=== PATIENT | male | born 1970 | race African-American/Black ===

== ENCOUNTER 2016-12-16 10:17 | Inpatient (IN) | payer OTHER ==
[2016-12-16 11:21] VITALS: BMI 25.4
--- NOTE | 2016-12-16 13:50 | HP ---
CIWA Score - CIWA Score Nausea/Vomitin Muscle Tremors: 3 Anxiety: 3 Agitation: 3 Paroxysmal Sweats: 2 Orientation: 0-Oriented Tacttile Disturbances: 2-Mild Itch/Numbness/Burn Auditory Disturbances: 2-Mild Harshness/Frighten Visual Disturbances: 2-Mild Sensitivity Headache: 2-Mild CIWA-Ar Total Score: 22 Admission ROS BHS - HPI Chief Complaint: i need help to stop drinking alcohol Allergies/Adverse Reactions: Allergies Allergy/AdvReac Type Severity Reaction Status Date / Time No Known Allergies Allergy Verified 12/16/16 12:39 History of Present Illness: this 46 years old male with alcohol dependence,seeking help to stop drinking, last detox 2016 [facility] 11/06/15 to 11/10/15 syncope htn depression longest period of sobriety 8 years Exam Limitations: No Limitations - Ebola screening Have you traveled outside of the country in the last 21 days: No Have you had contact with anyone from an Ebola affected area: No Have you been sick,other than usual withdrawal symptoms: No - Review of Systems Constitutional: No Symptoms Reported EENT: reports: Nose Congestion Respiratory: reports: No Symptoms reported Cardiac: reports: Palpitations GI: reports: Diarrhea, Nausea, Vomiting, Abdominal cramping : reports: No Symptoms Reported Musculoskeletal: reports: Back Pain, Muscle Pain Integumentary: reports: Dryness Endocrine: reports: No Symptoms Reported Hematology: reports: No Symptoms Reported Psychiatric: reports: No Sypmtoms Reported, Judgement Intact, Mood/Affect Appropiate, Depressed Patient History - Patient Medical History Hx Anemia: Yes (not taking any iron supplement) Hx Asthma: No Hx Chronic Obstructive Pulmonary Disease (COPD): No Hx Cancer: No Hx Cardiac Disorders: No Hx Congestive Heart Failure: No Hx Hypertension: Yes (ON MEDS.) Hx Hypercholesterolemia: Yes (NO MED) Hx Pacemaker: No HX Cerebrovascular Accident: No Hx Seizures: No Hx Dementia: No Hx Diabetes: No Hx Gastrointestinal Disorders: No Hx Liver Disease: No Hx Genitourinary Disorders: No Hx Sexually Transmitted Disorders: No Hx Renal Disease (ESRD): No Hx Thyroid Disease: No Hx Human Immunodeficiency Virus (HIV): No (NEGATIVE HX last 2016) Hx Hepatitis C: No (HEP B 27 YRS. AGO) Hx Depression: Yes Hx Suicide Attempt: No Hx Bipolar Disorder: No Hx Schizophrenia: No Other Medical History: no suicidal,no homicidal,history of rectal cancer biopsy 2 weeks ago, - Patient Surgical History Past Surgical History: Yes Hx Neurologic Surgery: No Hx Cataract Extraction: No Hx Cardiac Surgery: No Hx Lung Surgery: No Hx Breast Surgery: No Hx Breast Biopsy: No Hx Abdominal Surgery: No Hx Appendectomy: No Hx Cholecystectomy: No Hx Genitourinary Surgery: No Hx Section: No Hx Orthopedic Surgery: Yes (R shoulder sx in 2010) Other Surgical History: R wrist sx in 2011 R foot sx at age 10 yrs.,colonoscopy 2 weeks was told ca Anesthesia Reaction: No - PPD History Previous Implant?: Yes Documented Results: Negative w/o proof Implanted On Prior [facility] Admission?: Yes Date: 11/08/15 Results: 0 MM PPD to be Administered?: Yes - Smoking Cessation Smoking history: Never smoked Have you smoked in the past 12 months: No Hx Chewing Tobacco Use: No - Substance & Tx. History Hx Alcohol Use: Yes Hx Substance Use: Yes Substance Use Type: Alcohol Hx Substance Use Treatment: Yes ([facility] 11/06/15 to 11/10/15) - Substances Abused Alcohol Route: Oral Frequency: Daily Amount used: 12PK BEER Age of first use: 9 Date of Last Use: 12/16/16 Family Disease History - Family Disease History Family Disease History: Heart Disease: Mother (HTN), Other: Father (alcohol, ) Admission Physical Exam S - Vital Signs Vital Signs: Vital Signs - 24 hr 12/16/16 11:18 Temperature 97.0 F L Pulse Rate 108 H Respiratory 20 Rate Blood Pressure 140/91 - Physical General Appearance: Yes: Moderate Distress, Tremorous, Irritable, Sweating, Anxious HEENTM: Yes: Hearing grossly Normal, Normal ENT Inspection, [place], Pharynx Normal Respiratory: Yes: Lungs Clear, Normal Breath Sounds, No Respiratory Distress Neck: Yes: Within Normal Limits, Supple, Trachea in good position Breast: Yes: Within Normal Limits Cardiology: Yes: Tachycardia Abdominal: Yes: Within Normal Limits, Normal Bowel Sounds, Flat, Soft, Increased Bowel Sounds Genitourinary: Yes: Within Normal Limits Back: Yes: Normal Inspection, Muscle Spasm Musculoskeletal: Yes: full range of Motion, Back pain, Muscle Pain Extremities: Yes: Normal Range of Motion, Tremors, Coldness Neurological: Yes: checking clerk II-XII NML intact, Alert, Motor Strength 5/5 Integumentary: Yes: Dry Lymphatic: Yes: Within Normal Limits - Diagnostic (1) Alcohol dependence with uncomplicated withdrawal Current Visit: No Status: Acute (2) MDD (major depressive disorder) Current Visit: No Status: Acute (3) HTN (hypertension) Current Visit: No Status: Chronic Qualifiers: Hypertension type: essential hypertension Qualified Code(s): I10 - Essential (primary) hypertension (4) Hyperlipemia Current Visit: No Status: Suspected (5) Depression Current Visit: Yes Status: Acute (6) Cancer of rectum Current Visit: Yes Status: Acute Cleared for Admission [facility] - Detox or Rehab [facility] Level of Care: Medically Managed Detox Regimen/Protocol: Librium (patient stated has colonoscopy done 2 weeks ago ,had biopsy was told to be canccer of rectum,had cat scan shich showed spot in liver,has appontment to see his pmd on 12/21/16) [facility] Breath Alcohol Content Breath Alcohol Content: 0.350 Urine Drug Screen - Results Drug Screen Negative: Yes
[2016-12-16] MEDS ORDERED: MAGNESIUM CITRATE 300 ML BOTTLE PO PRN (14:15)
[2016-12-16] MEDS ORDERED: hydrOXYzine PAMOATE 50 MG CAPSULE (FP) PO PRN (14:15)
[2016-12-16] MEDS ORDERED: ACETAMINOPHEN 325 MG TABLET (FP) PO PRN (14:15)
[2016-12-16] MEDS ORDERED: LOPERAMIDE HCL 2 MG CAPSULE PO PRN (14:15)
[2016-12-16] MEDS ORDERED: IBUPROFEN 400 MG TABLET (FP) PO PRN (14:15)
[2016-12-16] MEDS ORDERED: diphenhydrAMINE HCL 50 MG CAPSULE PO PRN (14:15)
[2016-12-16] MEDS ORDERED: MAGNESIUM HYDROX 2400MG/30ML ORAL SUSPENSION 30 ML CUP PO PRN (14:15)
[2016-12-16] MEDS ORDERED: chlordiazePOXIDE HCL 25 MG CAPSULE PO PRN (14:15)
[2016-12-16] MEDS ORDERED: guaiFENesin/D-METHORPHAN HB 10 ML UNIT-DOSE CUPS PO PRN (14:15)
[2016-12-16] MEDS ORDERED: P-EPHED 60MG/TRIPROLIDI 2.5MG TABLET PO PRN (14:15)
[2016-12-16] MEDS ORDERED: MENTHOL/PHENOL 1 EACH UD MM PRN (14:15)
[2016-12-16] MEDS ORDERED: chlordiazePOXIDE HCL 25 MG CAPSULE PO ONE (14:22)
[2016-12-16] MEDS: amLODIPine BESYLATE 5 MG TABLET (FP) PO SCH (15:48)
[2016-12-16] MEDS: chlordiazePOXIDE HCL 25 MG CAPSULE PO SCH ×2 (16:57→22:13)
[2016-12-16 17:15] LABS: URINE APPEARANCE CLEAR; URINE BILIRUBIN NEGATIVE (NEGATIVE); URINE COLOR STRAW; URINE GLUCOSE (UA) NEGATIVE (NEGATIVE); URINE KETONE NEGATIVE (NEGATIVE); URINE LEUK ESTERASE NEGATIVE (NEGATIVE); URINE NITRITE NEGATIVE (NEGATIVE); URINE PROTEIN NEGATIVE (NEGATIVE); URINE UROBILINOGEN NEGATIVE E.U./dl (0.2-1.0)
[2016-12-16 17:19] LABS: URINE BLOOD 1+ (NEGATIVE)
[2016-12-16 17:25] LABS: URINE RBC 1 /hpf (0-3); URINE WBC <1 /hpf (3-5)
[2016-12-16] MEDS: THIAMINE HCL 100 MG TABLET (FP) PO SCH (22:13)
[2016-12-17] MEDS: chlordiazePOXIDE HCL 25 MG CAPSULE PO SCH ×4 (05:33→22:09)
[2016-12-17 10:06] LABS: MCH 29.5 pg (25.7-33.7); MEAN CELL VOLUME 89.4 fl (80-96); MEAN PLT VOLUME 8.4 fl (7.5-11.1); PLATELET COUNT 256 K/MM3 (134-434); RDW 14.7 % (11.9-15.9); WHITE BLOOD COUNT 5.2 K/mm3 (4.0-10.0)
[2016-12-17] MEDS: PRENATAL VITAMINS W/ FOLIC ACID TABLET (FP) PO SCH (10:08)
[2016-12-17] MEDS: amLODIPine BESYLATE 5 MG TABLET (FP) PO SCH (10:09)
[2016-12-17] MEDS: ASPIRIN COATED 81 MG TABLET.EC PO SCH (10:09)
--- NOTE | 2016-12-17 10:25 | PN ---
[facility] CIWA - CIWA Score Nausea/Vomitin-Int. Nausea w/Dry Heave Muscle Tremors: 4-Moderate,w/Arms Extend Anxiety: 5 Agitation: 4-Moderately Restless Paroxysmal Sweats: 1-Minimal Palms Moist Orientation: 0-Oriented Tacttile Disturbances: 3-Moderate Itch/Numb/Burn Auditory Disturbances: 0-None Visual Disturbances: 0-None Headache: 0-None Present CIWA-Ar Total Score: 21 BHS Progress Note (SOAP) Subjective: ANXIETY, TREMORS,SWEATS,NAUSEA,INTERMITTENT SLEEP. Objective: 12/17/16 10:27 Vital Signs Temperature 97.4 F L 12/17/16 09:45 Pulse Rate 120 H 12/17/16 09:45 Respiratory Rate 18 12/17/16 09:45 Blood Pressure 135/99 12/17/16 09:45 O2 Sat by Pulse Oximetry (%) Laboratory Last Values WBC 5.2 K/mm3 (4.0-10.0) 12/17/16 06:00 RBC 4.90 M/mm3 (4.00-5.60) 12/17/16 06:00 Hgb 14.4 GM/dL (11.7-16.9) 12/17/16 06:00 Hct 43.8 % (35.4-49) 12/17/16 06:00 MCV 89.4 fl (80-96) 12/17/16 06:00 MCHC 33.0 g/dl (32.0-35.9) 12/17/16 06:00 RDW 14.7 % (11.9-15.9) 12/17/16 06:00 Plt Count 256 K/MM3 (134-434) 12/17/16 06:00 MPV 8.4 fl (7.5-11.1) 12/17/16 06:00 Urine Color Straw 12/16/16 15:00 Urine Appearance Clear 12/16/16 15:00 Urine pH 5.0 (5.0-8.0) 12/16/16 15:00 Ur Specific [place] 1.010 (1.005-1.025) 12/16/16 15:00 Urine Protein Negative (NEGATIVE) 12/16/16 15:00 Urine Glucose (UA) Negative (NEGATIVE) 12/16/16 15:00 Urine Ketones Negative (NEGATIVE) 12/16/16 15:00 Urine Blood 1+ (NEGATIVE) H 12/16/16 15:00 Urine Nitrite Negative (NEGATIVE) 12/16/16 15:00 Urine Bilirubin Negative (NEGATIVE) 12/16/16 15:00 Urine Urobilinogen Negative E.U./dl (0.2-1.0) 12/16/16 15:00 Ur Leukocyte Esterase Negative (NEGATIVE) 12/16/16 15:00 Urine RBC 1 /hpf (0-3) 12/16/16 15:00 Urine WBC <1 /hpf (3-5) 12/16/16 15:00 Assessment: 12/17/16 10:27 WITHDRAWAL SX Plan: CONTINUE DETOX [facility] SL PRN DIRECTED.
[2016-12-17 10:36] LABS: ALBUMIN 4.5 g/dl (3.4-5.0); ANION GAP 12 (8-16); CO2 25 mmol/L (21-32); GLUCOSE,RANDOM 113 mg/dL (74-106); SGOT/AST 148 U/L (15-37); SGPT/ALT 78 U/L (12-78)
[2016-12-17] MEDS ORDERED: ONDANSETRON *ODT* 4 MG TABLET SL PRN (10:41)
[2016-12-17 10:44] LABS: ALK PHOS 74 U/L (45-117); BILIRUBIN,TOTAL 1.1 mg/dL (0.2-1.0); COCKROFT - GAULT 88.86; CREATININE 1.2 mg/dL (0.7-1.3); TOT PROT 8.3 g/dl (6.4-8.2)
--- NOTE | 2016-12-17 10:59 | CONSULT ---
[facility] Psychiatric Consult - Data Date of interview: 12/17/16 Admission source: [facility] Identifying data: Readmission to [facility] for this 46 y/o AA male seeking detox treatment for alcohol dependence.Patient is single,a father of three, domiciled,unemployed and supported on food stamps. Substance Abuse History: - Smoking Cessation. Smoking history: Never smoked. Have you smoked in the past 12 months: No. Hx Chewing Tobacco Use: No. - Substance & Tx. History. Hx Alcohol Use: Yes. Hx Substance Use: Yes. Substance Use Type: Alcohol. Hx Substance Use Treatment: Yes ([facility] 11/06/15 to 11/10/15). - Substances Abused. Alcohol. Route: Oral. Frequency: Daily. Amount used: 12PK BEER. Age of first use: 9. Date of Last Use: 12/16/16. Confirmed by patient. Medical History: Anemia,hypertension,dyslipidemia,and recently discovered rectal cancer (via colonoscopy two weeks ago).Noted past history of hepatitis B (years ago) and orthopedic surgeries (right shoulder / right wrist in 2010 and right foot at age [age]). Psychiatric History: No reported history of psychiatric hospitalizations.Diagnosed with MDD and followed at the [facility] OPD clinic in [facility].On Zoloft 50 mg/day.Mr Bal denies history of suicide attempts.Noted report of Mental Retardation. Physical/Sexual Abuse/Trauma History: Patient denies. Additional Comment: Drug Screen is negative. Mental Status Exam - Mental Status Exam Alert and Oriented to: Time, Place, Person Cognitive Function: Good Patient Appearance: Well Groomed Mood: Nervous, Withdrawn Affect: Mood Congruent Patient Behavior: Fatigued, Appropriate, Cooperative Speech Pattern: Clear Voice Loudness: Normal Thought Process: Goal Oriented Thought Disorder: Not Present Hallucinations: Denies Suicidal Ideation: Denies Homicidal Ideation: Denies Insight/Judgement: Poor Sleep: Poorly, Difficulty falling asleep Appetite: Good Muscle strength/Tone: Normal Gait/Station: Normal Psychiatric Findings - Problem List ([place] 1, 2,3) (1) Alcohol dependence with uncomplicated withdrawal Current Visit: Yes Status: Acute (2) MDD (major depressive disorder) Current Visit: Yes Status: Chronic Comment: Self-report. (3) Cancer of rectum Current Visit: Yes Status: Chronic (4) History of anemia Current Visit: Yes Status: Suspected (5) Hyperlipemia Current Visit: Yes Status: Chronic (6) Insomnia Current Visit: Yes Status: Acute - Initial Treatment Plan Initial Treatment Plan: Psychoeducation.Detoxification is initiated.Medications : ambien 10 mg po hs + zoloft 50 mg po hs.Side effects/benefits discussed with patient.He agrees with this careplan.Observation.
[2016-12-17] MEDS: METOPROLOL TARTRATE 25 MG TABLET (FP) PO SCH (11:01)
[2016-12-17 12:34] LABS: HIV 1 & 2 AB NEGATIVE; HIV 1 AGp24 NEGATIVE
--- NOTE | 2016-12-17 12:49 | EKG ---
Test Reason : Blood Pressure : / mmHG Vent. Rate : 073 BPM Atrial Rate : 073 BPM P-R Int : 138 ms QRS Dur : 094 ms QT Int : 390 ms P-R-T Axes : 077 051 010 degrees QTc Int : 429 ms NORMAL SINUS RHYTHM WITH SINUS ARRHYTHMIA NORMAL ECG NO PREVIOUS ECGS AVAILABLE Confirmed by AISSATOU GODOY MD ([id number]) on 12/17/2016 12:48:33 PM Referred By: Confirmed By:AISSATOU GODOY MD
[2016-12-17] MEDS ORDERED: chlordiazePOXIDE HCL 25 MG CAPSULE PO ONE (14:00)
[2016-12-17] MEDS: THIAMINE HCL 100 MG TABLET (FP) PO SCH (22:09)
[2016-12-17] MEDS: ZOLPIDEM TARTRATE 10 MG TABLET (PARK CARE ONLY) PO PRN (22:09)
[2016-12-18] MEDS: chlordiazePOXIDE HCL 25 MG CAPSULE PO SCH ×2 (06:03→10:18)
[2016-12-18] MEDS: METOPROLOL TARTRATE 25 MG TABLET (FP) PO SCH (10:18)
[2016-12-18] MEDS: amLODIPine BESYLATE 5 MG TABLET (FP) PO SCH (10:18)
[2016-12-18] MEDS: SERTRALINE HCL 50 MG TABLET (FP) PO SCH (10:18)
[2016-12-18] MEDS: PRENATAL VITAMINS W/ FOLIC ACID TABLET (FP) PO SCH (10:18)
[2016-12-18] MEDS: ASPIRIN COATED 81 MG TABLET.EC PO SCH (10:18)
[2016-12-18] MEDS: MAG HYDROX/AL HYDROX/SIMETH 30 ML UNIT-DOSE CUP PO PRN ×2 (11:02→20:52)
--- NOTE | 2016-12-18 11:56 | PN ---
[facility] CIWA - CIWA Score Nausea/Vomitin-No Nausea/No Vomiting Muscle Tremors: 4-Moderate,w/Arms Extend Anxiety: 4-Mod. Anxious/Guarded Agitation: 4-Moderately Restless Paroxysmal Sweats: 1-Minimal Palms Moist Orientation: 0-Oriented Tacttile Disturbances: 3-Moderate Itch/Numb/Burn Auditory Disturbances: 0-None Visual Disturbances: 0-None Headache: 0-None Present CIWA-Ar Total Score: 16 S Progress Note (SOAP) Subjective: IRRITABILITY,SWEATS,TREMORS,INTERMITTENT SLEEP. Objective: 12/18/16 11:56 Vital Signs Temperature 98.5 F 12/18/16 09:09 Pulse Rate 109 H 12/18/16 09:09 Respiratory Rate 20 12/18/16 09:09 Blood Pressure 142/97 12/18/16 09:10 O2 Sat by Pulse Oximetry (%) Laboratory Last Values WBC 5.2 K/mm3 (4.0-10.0) 12/17/16 06:00 RBC 4.90 M/mm3 (4.00-5.60) 12/17/16 06:00 Hgb 14.4 GM/dL (11.7-16.9) 12/17/16 06:00 Hct 43.8 % (35.4-49) 12/17/16 06:00 MCV 89.4 fl (80-96) 12/17/16 06:00 MCHC 33.0 g/dl (32.0-35.9) 12/17/16 06:00 RDW 14.7 % (11.9-15.9) 12/17/16 06:00 Plt Count 256 K/MM3 (134-434) 12/17/16 06:00 MPV 8.4 fl (7.5-11.1) 12/17/16 06:00 Sodium 135 mmol/L (136-145) L 12/17/16 06:00 Potassium 4.4 mmol/L (3.5-5.1) 12/17/16 06:00 Chloride 98 mmol/L (98-107) 12/17/16 06:00 Carbon Dioxide 25 mmol/L (21-32) 12/17/16 06:00 Anion Gap 12 (8-16) 12/17/16 06:00 BUN 4 mg/dL (7-18) L D 12/17/16 06:00 Creatinine 1.2 mg/dL (0.7-1.3) 12/17/16 06:00 Creat Clearance w eGFR > 60 (>60) 12/17/16 06:00 Random Glucose 113 mg/dL (74-106) H 12/17/16 06:00 Calcium 9.0 mg/dL (8.5-10.1) 12/17/16 06:00 Total Bilirubin 1.1 mg/dL (0.2-1.0) H D 12/17/16 06:00 AST 148 U/L (15-37) H D 12/17/16 06:00 ALT 78 U/L (12-78) D 12/17/16 06:00 Alkaline Phosphatase 74 U/L (45-117) 12/17/16 06:00 Total Protein 8.3 g/dl (6.4-8.2) H 12/17/16 06:00 Albumin 4.5 g/dl (3.4-5.0) 12/17/16 06:00 Urine Color Straw 12/16/16 15:00 Urine Appearance Clear 12/16/16 15:00 Urine pH 5.0 (5.0-8.0) 12/16/16 15:00 Ur Specific [place] 1.010 (1.005-1.025) 12/16/16 15:00 Urine Protein Negative (NEGATIVE) 12/16/16 15:00 Urine Glucose (UA) Negative (NEGATIVE) 12/16/16 15:00 Urine Ketones Negative (NEGATIVE) 12/16/16 15:00 Urine Blood 1+ (NEGATIVE) H 12/16/16 15:00 Urine Nitrite Negative (NEGATIVE) 12/16/16 15:00 Urine Bilirubin Negative (NEGATIVE) 12/16/16 15:00 Urine Urobilinogen Negative E.U./dl (0.2-1.0) 12/16/16 15:00 Ur Leukocyte Esterase Negative (NEGATIVE) 12/16/16 15:00 Urine RBC 1 /hpf (0-3) 12/16/16 15:00 Urine WBC <1 /hpf (3-5) 12/16/16 15:00 RPR Titer Nonreactive (NONREACTIVE) 12/17/16 06:00 HIV 1&2 Antibody Screen Negative 12/16/16 14:15 HIV P24 Antigen Negative 12/16/16 14:15 Assessment: 12/18/16 11:56 WITHDRAWAL SX Plan: CONTINUE DETOX
[2016-12-18] MEDS: ARTIFICIAL TEARS (POLYVINYL ALCOHOL 1.4%) OPTH DROPS OU SCH ×2 (13:41→22:50)
[2016-12-18] MEDS: chlordiazePOXIDE 5 MG CAPSULE PO SCH ×2 (17:19→22:11)
[2016-12-18] MEDS: THIAMINE HCL 100 MG TABLET (FP) PO SCH (22:11)
[2016-12-18] MEDS: ZOLPIDEM TARTRATE 10 MG TABLET (PARK CARE ONLY) PO PRN (22:13)
[2016-12-19] MEDS: ARTIFICIAL TEARS (POLYVINYL ALCOHOL 1.4%) OPTH DROPS OU SCH ×3 (05:44→22:09)
[2016-12-19] MEDS: chlordiazePOXIDE 5 MG CAPSULE PO SCH ×2 (05:44→10:10)
[2016-12-19] MEDS: SERTRALINE HCL 50 MG TABLET (FP) PO SCH (10:10)
[2016-12-19] MEDS: PRENATAL VITAMINS W/ FOLIC ACID TABLET (FP) PO SCH (10:10)
[2016-12-19] MEDS: ASPIRIN COATED 81 MG TABLET.EC PO SCH (10:10)
[2016-12-19] MEDS: METOPROLOL TARTRATE 25 MG TABLET (FP) PO SCH (10:10)
[2016-12-19] MEDS: amLODIPine BESYLATE 5 MG TABLET (FP) PO SCH (10:10)
--- NOTE | 2016-12-19 10:36 | PN ---
S Progress Note (SOAP) Subjective: ANXIETY,SWEATS,FATIGUE. RESPONDING WELL. Objective: 12/19/16 10:35 Vital Signs Temperature 99.6 F 12/19/16 09:52 Pulse Rate 78 12/19/16 09:52 Respiratory Rate 20 12/19/16 09:52 Blood Pressure 136/89 12/19/16 09:52 O2 Sat by Pulse Oximetry (%) Laboratory Last Values WBC 5.2 K/mm3 (4.0-10.0) 12/17/16 06:00 RBC 4.90 M/mm3 (4.00-5.60) 12/17/16 06:00 Hgb 14.4 GM/dL (11.7-16.9) 12/17/16 06:00 Hct 43.8 % (35.4-49) 12/17/16 06:00 MCV 89.4 fl (80-96) 12/17/16 06:00 MCHC 33.0 g/dl (32.0-35.9) 12/17/16 06:00 RDW 14.7 % (11.9-15.9) 12/17/16 06:00 Plt Count 256 K/MM3 (134-434) 12/17/16 06:00 MPV 8.4 fl (7.5-11.1) 12/17/16 06:00 Sodium 135 mmol/L (136-145) L 12/17/16 06:00 Potassium 4.4 mmol/L (3.5-5.1) 12/17/16 06:00 Chloride 98 mmol/L (98-107) 12/17/16 06:00 Carbon Dioxide 25 mmol/L (21-32) 12/17/16 06:00 Anion Gap 12 (8-16) 12/17/16 06:00 BUN 4 mg/dL (7-18) L D 12/17/16 06:00 Creatinine 1.2 mg/dL (0.7-1.3) 12/17/16 06:00 Creat Clearance w eGFR > 60 (>60) 12/17/16 06:00 Random Glucose 113 mg/dL (74-106) H 12/17/16 06:00 Calcium 9.0 mg/dL (8.5-10.1) 12/17/16 06:00 Total Bilirubin 1.1 mg/dL (0.2-1.0) H D 12/17/16 06:00 AST 148 U/L (15-37) H D 12/17/16 06:00 ALT 78 U/L (12-78) D 12/17/16 06:00 Alkaline Phosphatase 74 U/L (45-117) 12/17/16 06:00 Total Protein 8.3 g/dl (6.4-8.2) H 12/17/16 06:00 Albumin 4.5 g/dl (3.4-5.0) 12/17/16 06:00 Urine Color Straw 12/16/16 15:00 Urine Appearance Clear 12/16/16 15:00 Urine pH 5.0 (5.0-8.0) 12/16/16 15:00 Ur Specific [place] 1.010 (1.005-1.025) 12/16/16 15:00 Urine Protein Negative (NEGATIVE) 12/16/16 15:00 Urine Glucose (UA) Negative (NEGATIVE) 12/16/16 15:00 Urine Ketones Negative (NEGATIVE) 12/16/16 15:00 Urine Blood 1+ (NEGATIVE) H 12/16/16 15:00 Urine Nitrite Negative (NEGATIVE) 12/16/16 15:00 Urine Bilirubin Negative (NEGATIVE) 12/16/16 15:00 Urine Urobilinogen Negative E.U./dl (0.2-1.0) 12/16/16 15:00 Ur Leukocyte Esterase Negative (NEGATIVE) 12/16/16 15:00 Urine RBC 1 /hpf (0-3) 12/16/16 15:00 Urine WBC <1 /hpf (3-5) 12/16/16 15:00 RPR Titer Nonreactive (NONREACTIVE) 12/17/16 06:00 HIV 1&2 Antibody Screen Negative 12/16/16 14:15 HIV P24 Antigen Negative 12/16/16 14:15 Assessment: 12/19/16 10:36 WITHDRAWAL SX Plan: CONTINUE DETOX
[2016-12-19] MEDS: chlordiazePOXIDE HCL 10 MG CAPSULE PO SCH ×2 (17:12→22:10)
[2016-12-19] MEDS: THIAMINE HCL 100 MG TABLET (FP) PO SCH (22:10)
[2016-12-19] MEDS: ZOLPIDEM TARTRATE 10 MG TABLET (PARK CARE ONLY) PO PRN (22:10)
[2016-12-20] MEDS: ARTIFICIAL TEARS (POLYVINYL ALCOHOL 1.4%) OPTH DROPS OU SCH (05:37)
[2016-12-20] MEDS: chlordiazePOXIDE HCL 10 MG CAPSULE PO SCH (05:38)
[2016-12-20 06:34] VITALS: BP 137/95; PULSE 64; TEMP 97.3
--- NOTE | 2016-12-20 15:12 | DS ---
[facility] Detox Discharge Summary Admission Date: 12/16/16 Discharge Date: 12/20/16 - History Present History: Alcohol Dependence Additional Comments: ADVISED PATIENT TO FOLLOW-UP WITH [facility] AFTER DISCHARGE FROM DETOX FOR GENERAL MEDICAL ASSESSMENT. Pertinent Past History: Hypercholesterolemia, HTN, Hep B, Cancer Of rectum, Anemia, Depression. - Physical Exam Results Vital Signs: Vital Signs Temperature 97.3 F L 12/20/16 06:33 Pulse Rate 64 12/20/16 06:33 Respiratory Rate 18 12/20/16 06:33 Blood Pressure 137/95 12/20/16 06:33 O2 Sat by Pulse Oximetry (%) Pertinent Admission Physical Exam Findings: WITHDRAWAL SYMPTOMS. Laboratory Tests 12/16/16 12/16/16 12/17/16 14:15 15:00 06:00 WBC 5.2 RBC 4.90 Hgb 14.4 Hct 43.8 MCV 89.4 MCHC 33.0 RDW 14.7 Plt Count 256 MPV 8.4 Sodium Potassium Chloride Carbon Dioxide Anion Gap BUN Creatinine Creat Clearance w eGFR Random Glucose Calcium Total Bilirubin AST ALT Alkaline Phosphatase Total Protein Albumin Urine Color Straw Urine Appearance Clear Urine pH 5.0 Ur Specific [place] 1.010 Urine Protein Negative Urine Glucose (UA) Negative Urine Ketones Negative Urine Blood 1+ H Urine Nitrite Negative Urine Bilirubin Negative Urine Urobilinogen Negative Ur Leukocyte Esterase Negative Urine RBC 1 Urine WBC <1 RPR Titer HIV 1&2 Antibody Screen Negative HIV P24 Antigen Negative 12/17/16 12/17/16 06:00 06:00 WBC RBC Hgb Hct MCV MCHC RDW Plt Count MPV Sodium 135 L Potassium 4.4 Chloride 98 Carbon Dioxide 25 Anion Gap 12 BUN 4 L D Creatinine 1.2 Creat Clearance w eGFR > 60 Random Glucose 113 H Calcium 9.0 Total Bilirubin 1.1 H D AST 148 H D ALT 78 D Alkaline Phosphatase 74 Total Protein 8.3 H Albumin 4.5 Urine Color Urine Appearance Urine pH Ur Specific [place] Urine Protein Urine Glucose (UA) Urine Ketones Urine Blood Urine Nitrite Urine Bilirubin Urine Urobilinogen Ur Leukocyte Esterase Urine RBC Urine WBC RPR Titer Nonreactive HIV 1&2 Antibody Screen HIV P24 Antigen LABS NOTED. - Treatment Hospital Course: Detox Protocol Followed, Detoxed Safely, Responded well, Discharged Condition Good Patient has Accepted a Rehab Referral to: NO-PT. TO RETURN TO [facility]PATIENT PROGRAM. - Medication Discharge Medications: Ambulatory Orders Sertraline HCl [Zoloft -] 50 mg PO DAILY #30 tablet 12/19/16 Amlodipine Besylate 5 mg PO DAILY #30 mg 12/20/16 Aspirin [Aspirin EC] 81 mg PO DAILY #30 mg 12/20/16 - Diagnosis (1) Alcohol dependence with uncomplicated withdrawal Status: Acute (2) Insomnia Status: Acute Qualifiers: Insomnia type: unspecified Qualified Code(s): G47.00 - Insomnia, unspecified (3) Cancer of rectum Status: Chronic (4) HTN (hypertension) Status: Chronic Qualifiers: Hypertension type: essential hypertension Qualified Code(s): I10 - Essential (primary) hypertension (5) Hyperlipemia Status: Chronic Qualifiers: Hyperlipidemia type: unspecified Qualified Code(s): E78.5 - Hyperlipidemia, unspecified (6) MDD (major depressive disorder) Status: Chronic Qualifiers: Major depression recurrence: recurrent Active/Remission status: remission status unspecified Qualified Code(s): F33.9 - Major depressive disorder, recurrent, unspecified (7) History of anemia Status: Suspected - AMA Did Patient Leave Against Medical Advice: No
== END 2016-12-20 08:50 | disposition home or self-care (01) | DRG 775 ==
LOC: YASAS 10:17 → Y3N 13:24
PROVIDERS: ADMIT Internal Medicine; ATTEND Internal Medicine
PROC: HZ2ZZZZ Detoxification Services for Substance Abuse Treatment (ICD-10-PCS; principal; 2016-12-16)
DX: F10.230 Alcohol dependence with withdrawal, uncomplicated (principal); F33.9 Major depressive disorder, recurrent, unspecified; R00.0 Tachycardia, unspecified; I10 Essential (primary) hypertension; E78.5 Hyperlipidemia, unspecified; C20 Malignant neoplasm of rectum; G47.00 Insomnia, unspecified; Z86.2 Personal history of diseases of the blood and blood-forming organs and certain disorders involving the immune mechanism; Z86.19 Personal history of other infectious and parasitic diseases
CPT/HCPCS: 36415; 80053; 81003; 81015; 85027; 86593; 87389; 93005; 93010

== ENCOUNTER 2017-03-10 08:20 | Inpatient (IN) | payer OTHER ==
[2017-03-10 08:57] VITALS: BMI 24.0
--- NOTE | 2017-03-10 13:08 | HP ---
CIWA Score - CIWA Score Nausea/Vomitin Muscle Tremors: 3 Anxiety: 5 Agitation: 4-Moderately Restless Paroxysmal Sweats: 1-Minimal Palms Moist Orientation: 0-Oriented Tacttile Disturbances: 3-Moderate Itch/Numb/Burn Auditory Disturbances: 0-None Visual Disturbances: 0-None Headache: 2-Mild CIWA-Ar Total Score: 23 Admission ROS BHS - HPI Chief Complaint: DETOX TX FOR ALCOHOL DEPENDENCE Allergies/Adverse Reactions: Allergies Allergy/AdvReac Type Severity Reaction Status Date / Time No Known Allergies Allergy Verified 03/10/17 10:17 History of Present Illness: 46 Y/O AA/MALE WITH A HX OF ALCOHOL AND MARIJUANA DEPENDENCE SEEKING DETOX TX Exam Limitations: No Limitations - Ebola screening Have you traveled outside of the country in the last 21 days: No Have you had contact with anyone from an Ebola affected area: No Have you been sick,other than usual withdrawal symptoms: No - Review of Systems Constitutional: Loss of Appetite, Changes in sleep, Unintentional Wgt. Loss EENT: reports: Blurred Vision, Tearing, Nose Congestion Respiratory: reports: No Symptoms reported Cardiac: reports: Lightheadedness GI: reports: Constipated, Diarrhea, Nausea, Poor Appetite, Poor Fluid Intake, Vomiting, Indigestion, Abdominal cramping, Other (HX COLONOSCOPY WITH POLYPS WHICH PT STATES CAME BACK BENIGN. "NO CANCER".) Integumentary: reports: No Symptoms Reported Neuro: reports: Headache, Tremors, Unsteady Gait, Dizziness Endocrine: reports: No Symptoms Reported Hematology: reports: No Symptoms Reported Psychiatric: reports: Orientated x3, Anxious, Depressed, other (PANIC ATTACKS) Other Systems: Reviewed and Negative Patient History - Patient Medical History Hx Anemia: Yes (not taking any iron supplement) Hx Asthma: No Hx Chronic Obstructive Pulmonary Disease (COPD): No Hx Cancer: No Hx Cardiac Disorders: No Hx Congestive Heart Failure: No Hx Hypertension: Yes (on meds.) Hx Hypercholesterolemia: Yes (NO MED) Hx Pacemaker: No HX Cerebrovascular Accident: No Hx Seizures: No Hx Dementia: No Hx Diabetes: No Hx Gastrointestinal Disorders: Yes (GERD) Hx Liver Disease: No Hx Genitourinary Disorders: No Hx Sexually Transmitted Disorders: No Hx Renal Disease (ESRD): No Hx Thyroid Disease: No Hx Human Immunodeficiency Virus (HIV): No (NEGATIVE HX last 2016) Hx Hepatitis C: No (HEP B AT 16 YRS.) Hx Depression: Yes Hx Suicide Attempt: No (DENIES) Hx Bipolar Disorder: No Hx Schizophrenia: No - Patient Surgical History Past Surgical History: Yes Hx Neurologic Surgery: No Hx Cataract Extraction: No Hx Cardiac Surgery: No Hx Lung Surgery: No Hx Breast Surgery: No Hx Breast Biopsy: No Hx Abdominal Surgery: No Hx Appendectomy: No Hx Cholecystectomy: No Hx Genitourinary Surgery: No Hx Section: No Hx Orthopedic Surgery: Yes (R shoulder sx in 2010) Other Surgical History: R wrist sx 2011; R foot sx age 10;colonoscopy with polyps remove,benign. Anesthesia Reaction: No - PPD History Previous Implant?: Yes Documented Results: Negative w/proof Implanted On Prior [facility] Admission?: Yes Date: 12/18/16 Results: 0 mm PPD to be Administered?: No - Reproductive History Patient is a Female of Child Bearing Age (11 -55 yrs old): No (MALE) Patient : No (N/A) - Smoking Cessation Smoking history: Never smoked Have you smoked in the past 12 months: No Hx Chewing Tobacco Use: No - Substance & Tx. History Hx Alcohol Use: Yes (BEER) Hx Substance Use: Yes (MARIJUANA) Substance Use Type: Alcohol, Marijuana Hx Substance Use Treatment: Yes (LAST TX AT [facility]) - Substances Abused Alcohol Route: Oral Frequency: Daily Amount used: 5 22 OZ BEERS Age of first use: 11 Date of Last Use: 03/10/17 Family Disease History - Family Disease History Family Disease History: Heart Disease: Mother (HTN), Other: Father (alcohol, ) Admission Physical Exam [facility] - Vital Signs Vital Signs: Vital Signs - 24 hr 03/10/17 08:54 Temperature 98.1 F Pulse Rate 104 H Respiratory 20 Rate Blood Pressure 139/92 - Physical General Appearance: Yes: Moderate Distress, Alcohol on Breath, Intoxicated, Irritable, Anxious HEENTM: Yes: EOMI, Normocephalic, [place], Pharynx Normal, Photophobia, Nasal Congestion, Rhinorrhea Respiratory: Yes: Chest Non-Tender, Lungs Clear, Normal Breath Sounds, No Respiratory Distress Neck: Yes: Supple Breast: Yes: Breast Exam Deferred Cardiology: Yes: Regular Rhythm, S1, S2, Tachycardia Abdominal: Yes: Normal Bowel Sounds, Non Tender, Soft Genitourinary: Yes: Other (N/C) Back: Yes: Within Normal Limits Musculoskeletal: Yes: full range of Motion, Gait Steady Extremities: Yes: Normal Range of Motion, Non-Tender Neurological: Yes: 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 Cleared for Admission [facility] - Detox or Rehab [facility] Level of Care: Medically Managed Detox Regimen/Protocol: Librium [facility] Breath Alcohol Content Breath Alcohol Content: 0.386 Urine Drug Screen - Results Drug Screen Negative: Yes
[2017-03-10] MEDS ORDERED: MAGNESIUM CITRATE 300 ML BOTTLE PO PRN (13:18)
[2017-03-10] MEDS ORDERED: ACETAMINOPHEN 325 MG TABLET (FP) PO PRN (13:18)
[2017-03-10] MEDS ORDERED: P-EPHED 60MG/TRIPROLIDI 2.5MG TABLET PO PRN (13:18)
[2017-03-10] MEDS ORDERED: MENTHOL/PHENOL 1 EACH UD MM PRN (13:18)
[2017-03-10] MEDS ORDERED: guaiFENesin/D-METHORPHAN HB 10 ML UNIT-DOSE CUPS PO PRN (13:18)
[2017-03-10] MEDS ORDERED: MAGNESIUM HYDROX 2400MG/30ML ORAL SUSPENSION 30 ML CUP PO PRN (13:18)
[2017-03-10] MEDS ORDERED: IBUPROFEN 400 MG TABLET (FP) PO PRN (13:18)
[2017-03-10] MEDS ORDERED: MAG HYDROX/AL HYDROX/SIMETH 30 ML UNIT-DOSE CUP PO PRN (13:18)
[2017-03-10] MEDS: hydrOXYzine PAMOATE 50 MG CAPSULE (FP) PO PRN (13:58)
[2017-03-10] MEDS ORDERED: chlordiazePOXIDE HCL 25 MG CAPSULE PO ONE (14:00)
[2017-03-10 14:29] LABS: HIV 1 & 2 AB NEGATIVE; HIV 1 AGp24 NEGATIVE
[2017-03-10 18:02] LABS: MCH 29.2 pg (25.7-33.7); MEAN CELL VOLUME 88.5 fl (80-96); MEAN PLT VOLUME 9.2 fl (7.5-11.1); PLATELET COUNT 223 K/MM3 (134-434); RDW 16.9 % (11.9-15.9); WHITE BLOOD COUNT 4.1 K/mm3 (4.0-10.0)
[2017-03-10 18:13] LABS: ALBUMIN 4.3 g/dl (3.4-5.0); ANION GAP 13 (8-16); CALCIUM 8.8 mg/dL (8.5-10.1); CO2 24 mmol/L (21-32); GLUCOSE,RANDOM 111 mg/dL (74-106)
[2017-03-10] MEDS: chlordiazePOXIDE HCL 25 MG CAPSULE PO SCH ×2 (18:20→22:13)
[2017-03-10 18:22] LABS: ALK PHOS 76 U/L (45-117); BILIRUBIN,TOTAL 0.9 mg/dL (0.2-1.0); SGOT/AST 88 U/L (15-37); SGPT/ALT 55 U/L (12-78); TOT PROT 8.4 g/dl (6.4-8.2)
[2017-03-10 18:29] LABS: URINE COLOR STRAW
[2017-03-10 18:30] LABS: URINE APPEARANCE CLEAR; URINE BILIRUBIN NEGATIVE (NEGATIVE); URINE BLOOD 1+ (NEGATIVE); URINE GLUCOSE (UA) NEGATIVE (NEGATIVE); URINE KETONE NEGATIVE (NEGATIVE); URINE LEUK ESTERASE NEGATIVE (NEGATIVE); URINE NITRITE NEGATIVE (NEGATIVE); URINE PROTEIN NEGATIVE (NEGATIVE); URINE UROBILINOGEN NORMAL mg/dL (0.2-1.0)
[2017-03-10 18:31] LABS: URINE MUCUS RARE; URINE RBC <1 /hpf (0-3); URINE WBC NONE SEEN /hpf (3-5)
[2017-03-10] MEDS: THIAMINE HCL 100 MG TABLET (FP) PO SCH (22:13)
[2017-03-10] MEDS: diphenhydrAMINE HCL 50 MG CAPSULE PO PRN (22:16)
[2017-03-11] MEDS: chlordiazePOXIDE HCL 25 MG CAPSULE PO PRN ×2 (03:47→08:45)
[2017-03-11] MEDS: hydrOXYzine PAMOATE 50 MG CAPSULE (FP) PO PRN ×2 (03:47→10:19)
[2017-03-11] MEDS: chlordiazePOXIDE HCL 25 MG CAPSULE PO SCH ×4 (05:15→22:18)
--- NOTE | 2017-03-11 09:28 | CONSULT ---
[facility] Psychiatric Consult - Data Date of interview: 03/11/17 Admission source: [facility] Identifying data: This ios 46 years old chronic alcoholic with no psychiatric hospitalization history intoxicated with Alcohol Substance Abuse History: - Smoking Cessation. Smoking history: Never smoked. Have you smoked in the past 12 months: No. Hx Chewing Tobacco Use: No. - Substance & Tx. History. Hx Alcohol Use: Yes (BEER). Hx Substance Use: Yes ( MARIJUANA). Substance Use Type: Alcohol, Marijuana. Hx Substance Use Treatment : Yes (LAST TX AT [facility]). - Substances Abused. Alcohol. Route: Oral. Frequency: Daily. Amount used: 5 22 OZ BEERS. Age of first use: 11. Date of Last Use: 03/10/17 Medical History: HTN, Anemia history, Hyperlipidemia, History of Rectum Cancer Psychiatric History: Patient reports history of Mild MR, MDD, reports taking prior to admission: Zoloft 50mg poqd Physical/Sexual Abuse/Trauma History: Denies Additional Comment: Zoloft 50mg poqd Mental Status Exam - Mental Status Exam Alert and Oriented to: Person Cognitive Function: Fair Patient Appearance: Unkempt Mood: Sad Affect: Mood Congruent Patient Behavior: Cooperative Speech Pattern: Delayed Voice Loudness: Monoloudness Thought Process: Circumstantial Thought Disorder: Being Controlled Hallucinations: Denies Suicidal Ideation: Denies Homicidal Ideation: Denies Insight/Judgement: Fair Sleep: Difficulty falling asleep Appetite: Fair Muscle strength/Tone: Normal Gait/Station: Normal Additional Comments: Zoloft 50mg poqd Psychiatric Findings - Problem List ([place] 1, 2,3) (1) Alcohol dependence with uncomplicated withdrawal Current Visit: Yes Status: Acute (2) Mental confusion Current Visit: No Status: Acute (3) Other and unspecified alcohol dependence, episodic drinking behavior Current Visit: No Status: Acute (4) MDD (major depressive disorder) Current Visit: No Status: Chronic Qualifiers: Major depression recurrence: recurrent Active/Remission status: remission status unspecified Qualified Code(s): F33.9 - Major depressive disorder, recurrent, unspecified Comment: Self-report. (5) Mental retardation, mild (I.Q. 50-70) Current Visit: No Status: Suspected (6) Drug-induced mood disorder Current Visit: Yes Status: Acute - Initial Treatment Plan Initial Treatment Plan: Zoloft 50mg poqd
--- NOTE | 2017-03-11 10:06 | PN ---
S CIWA - CIWA Score Nausea/Vomitin Muscle Tremors: 4-Moderate,w/Arms Extend Anxiety: 4-Mod. Anxious/Guarded Agitation: 4-Moderately Restless Paroxysmal Sweats: 3 Orientation: 0-Oriented Tacttile Disturbances: 1-Very Mild Itch/Numbness Auditory Disturbances: 0-None Visual Disturbances: 0-None Headache: 1-Very Mild CIWA-Ar Total Score: 20 BHS Progress Note (SOAP) Subjective: nausea, sweats, interrupted sleep, anxiety, tremors Objective: 03/11/17 10:05 Vital Signs - 24 hr 03/10/17 03/10/17 03/10/17 14:22 18:56 21:16 Temperature 98.2 F 97.7 F 98.2 F Pulse Rate 118 H 111 H 130 H Respiratory 18 18 20 Rate Blood Pressure 129/95 111/78 145/88 03/11/17 03/11/17 03/11/17 02:56 03:30 05:51 Temperature 97.0 F L Pulse Rate 96 H 123 H 114 H Respiratory 18 20 18 Rate Blood Pressure 133/95 03/11/17 06:30 Temperature Pulse Rate 78 Respiratory 18 Rate Blood Pressure Laboratory Tests 03/10/17 03/10/17 03/10/17 12:00 13:20 13:20 WBC 4.1 RBC 4.96 Hgb 14.5 Hct 43.9 MCV 88.5 MCH 29.2 MCHC 33.0 RDW 16.9 H D Plt Count 223 MPV 9.2 Sodium 132 L Potassium 4.5 Chloride 95 L Carbon Dioxide 24 Anion Gap 13 BUN 5 L D Creatinine 1.0 Creat Clearance w eGFR > 60 Random Glucose 111 H Calcium 8.8 Total Bilirubin 0.9 AST 88 H D ALT 55 D Alkaline Phosphatase 76 Total Protein 8.4 H Albumin 4.3 Urine Color Urine Appearance Urine pH Ur Specific [place] Urine Protein Urine Glucose (UA) Urine Ketones Urine Blood Urine Nitrite Urine Bilirubin Urine Urobilinogen Ur Leukocyte Esterase Urine RBC Urine WBC Urine Mucus HIV 1&2 Antibody Screen Negative HIV P24 Antigen Negative 03/10/17 15:00 WBC RBC Hgb Hct MCV MCH MCHC RDW Plt Count MPV Sodium Potassium Chloride Carbon Dioxide Anion Gap BUN Creatinine Creat Clearance w eGFR Random Glucose Calcium Total Bilirubin AST ALT Alkaline Phosphatase Total Protein Albumin Urine Color Straw Urine Appearance Clear Urine pH 5.0 Ur Specific [place] <= 1.005 Urine Protein Negative Urine Glucose (UA) Negative Urine Ketones Negative Urine Blood 1+ H Urine Nitrite Negative Urine Bilirubin Negative Urine Urobilinogen Normal Ur Leukocyte Esterase Negative Urine RBC <1 Urine WBC None seen Urine Mucus Rare HIV 1&2 Antibody Screen HIV P24 Antigen Assessment: 03/11/17 10:05 withdrawal sx Plan: cont detox
[2017-03-11] MEDS: PRENATAL VITAMINS W/ FOLIC ACID TABLET (FP) PO SCH (10:14)
[2017-03-11] MEDS: ASPIRIN COATED 81 MG TABLET.EC PO SCH (10:16)
[2017-03-11] MEDS: amLODIPine BESYLATE 5 MG TABLET (FP) PO SCH (10:16)
--- NOTE | 2017-03-11 10:45 | EKG ---
Test Reason : Blood Pressure : / mmHG Vent. Rate : 094 BPM Atrial Rate : 094 BPM P-R Int : 134 ms QRS Dur : 084 ms QT Int : 338 ms P-R-T Axes : 077 049 012 degrees QTc Int : 422 ms NORMAL SINUS RHYTHM NORMAL ECG WHEN COMPARED WITH ECG OF 16-DEC-2016 14:51, NO SIGNIFICANT CHANGE WAS FOUND Confirmed by AISSATOU GODOY MD ([id number]) on 03/11/2017 10:45:18 AM Referred By: Confirmed By:AISSATOU GODOY MD
[2017-03-11] MEDS ORDERED: ONDANSETRON *ODT* 4 MG TABLET SL ONE (11:15)
[2017-03-11] MEDS: SERTRALINE HCL 50 MG TABLET (FP) PO SCH (12:17)
[2017-03-11] MEDS ORDERED: chlordiazePOXIDE HCL 25 MG CAPSULE PO ONE (13:00)
[2017-03-11] MEDS: LOPERAMIDE HCL 2 MG CAPSULE PO PRN ×2 (17:03→23:41)
[2017-03-11] MEDS: ONDANSETRON *ODT* 4 MG TABLET SL PRN (22:21)
[2017-03-11] MEDS: diphenhydrAMINE HCL 50 MG CAPSULE PO PRN (22:50)
[2017-03-11] MEDS: THIAMINE HCL 100 MG TABLET (FP) PO SCH (23:09)
[2017-03-12] MEDS: chlordiazePOXIDE HCL 25 MG CAPSULE PO SCH ×2 (05:25→10:36)
[2017-03-12] MEDS: SERTRALINE HCL 50 MG TABLET (FP) PO SCH (10:36)
[2017-03-12] MEDS: amLODIPine BESYLATE 5 MG TABLET (FP) PO SCH (10:36)
[2017-03-12] MEDS: ONDANSETRON *ODT* 4 MG TABLET SL PRN (10:36)
[2017-03-12] MEDS: hydrOXYzine PAMOATE 50 MG CAPSULE (FP) PO PRN (10:36)
[2017-03-12] MEDS: ASPIRIN COATED 81 MG TABLET.EC PO SCH (10:36)
[2017-03-12] MEDS: PRENATAL VITAMINS W/ FOLIC ACID TABLET (FP) PO SCH (10:37)
--- NOTE | 2017-03-12 12:43 | PN ---
S CIWA - CIWA Score Nausea/Vomitin-No Nausea/No Vomiting Muscle Tremors: 4-Moderate,w/Arms Extend Anxiety: 3 Agitation: 4-Moderately Restless Paroxysmal Sweats: 3 Orientation: 0-Oriented Tacttile Disturbances: 0-None Auditory Disturbances: 0-None Visual Disturbances: 0-None Headache: 0-None Present CIWA-Ar Total Score: 14 BHS Progress Note (SOAP) Subjective: agitation anxiety sweats interrupted sleep Objective: 03/12/17 12:41 Vital Signs Temperature 98.2 F 03/12/17 10:01 Pulse Rate 117 H 03/12/17 10:01 Respiratory Rate 18 03/12/17 10:01 Blood Pressure 127/88 03/12/17 10:01 O2 Sat by Pulse Oximetry (%) Laboratory Tests 03/10/17 03/10/17 03/10/17 12:00 13:20 13:20 WBC 4.1 RBC 4.96 Hgb 14.5 Hct 43.9 MCV 88.5 MCH 29.2 MCHC 33.0 RDW 16.9 H D Plt Count 223 MPV 9.2 Sodium 132 L Potassium 4.5 Chloride 95 L Carbon Dioxide 24 Anion Gap 13 BUN 5 L D Creatinine 1.0 Creat Clearance w eGFR > 60 Random Glucose 111 H Calcium 8.8 Total Bilirubin 0.9 AST 88 H D ALT 55 D Alkaline Phosphatase 76 Total Protein 8.4 H Albumin 4.3 Urine Color Urine Appearance Urine pH Ur Specific [place] Urine Protein Urine Glucose (UA) Urine Ketones Urine Blood Urine Nitrite Urine Bilirubin Urine Urobilinogen Ur Leukocyte Esterase Urine RBC Urine WBC Urine Mucus RPR Titer HIV 1&2 Antibody Screen Negative HIV P24 Antigen Negative 03/10/17 03/10/17 13:20 15:00 WBC RBC Hgb Hct MCV MCH MCHC RDW Plt Count MPV Sodium Potassium Chloride Carbon Dioxide Anion Gap BUN Creatinine Creat Clearance w eGFR Random Glucose Calcium Total Bilirubin AST ALT Alkaline Phosphatase Total Protein Albumin Urine Color Straw Urine Appearance Clear Urine pH 5.0 Ur Specific [place] <= 1.005 Urine Protein Negative Urine Glucose (UA) Negative Urine Ketones Negative Urine Blood 1+ H Urine Nitrite Negative Urine Bilirubin Negative Urine Urobilinogen Normal Ur Leukocyte Esterase Negative Urine RBC <1 Urine WBC None seen Urine Mucus Rare RPR Titer Nonreactive HIV 1&2 Antibody Screen HIV P24 Antigen awake/alert ambulation no acute distress Assessment: 03/12/17 12:42 withdrawal sx Plan: continue detox increase fluids
[2017-03-12] MEDS: LOPERAMIDE HCL 2 MG CAPSULE PO PRN (16:03)
[2017-03-12] MEDS: chlordiazePOXIDE 5 MG CAPSULE PO SCH ×2 (18:22→22:31)
[2017-03-12] MEDS: diphenhydrAMINE HCL 50 MG CAPSULE PO PRN (22:31)
[2017-03-12] MEDS: THIAMINE HCL 100 MG TABLET (FP) PO SCH (22:31)
[2017-03-13] MEDS: hydrOXYzine PAMOATE 50 MG CAPSULE (FP) PO PRN (03:18)
[2017-03-13] MEDS: chlordiazePOXIDE 5 MG CAPSULE PO SCH ×2 (05:54→10:37)
[2017-03-13] MEDS: NAPHAZOLINE/PHENIRAMINE OPHTHALMIC 15 ML BOTTLE OU PRN ×2 (05:56→22:18)
--- NOTE | 2017-03-13 10:12 | PN ---
S Progress Note (SOAP) Subjective: ALERT,IRRITABLE,ANXIOUS,INTERRUPTED SLEEP Objective: 03/13/17 10:10 Vital Signs Temperature 98.0 F 03/13/17 09:56 Pulse Rate 69 03/13/17 09:56 Respiratory Rate 18 03/13/17 09:56 Blood Pressure 158/90 03/13/17 09:56 O2 Sat by Pulse Oximetry (%) Assessment: 03/13/17 10:11 WITHDRAWAL SYMPTOM Plan: CONTINUE DETOX,DISCHARGE IN AM
[2017-03-13] MEDS: PRENATAL VITAMINS W/ FOLIC ACID TABLET (FP) PO SCH (10:37)
[2017-03-13] MEDS: SERTRALINE HCL 50 MG TABLET (FP) PO SCH (10:37)
[2017-03-13] MEDS: amLODIPine BESYLATE 5 MG TABLET (FP) PO SCH (10:37)
[2017-03-13] MEDS: ASPIRIN COATED 81 MG TABLET.EC PO SCH (10:37)
[2017-03-13] MEDS: chlordiazePOXIDE HCL 10 MG CAPSULE PO SCH ×2 (17:43→22:18)
[2017-03-13] MEDS: THIAMINE HCL 100 MG TABLET (FP) PO SCH (22:18)
[2017-03-13] MEDS: diphenhydrAMINE HCL 50 MG CAPSULE PO PRN (22:19)
[2017-03-14] MEDS: chlordiazePOXIDE HCL 10 MG CAPSULE PO SCH (05:23)
[2017-03-14] MEDS: amLODIPine BESYLATE 5 MG TABLET (FP) PO SCH (09:25)
[2017-03-14] MEDS: SERTRALINE HCL 50 MG TABLET (FP) PO SCH (09:25)
[2017-03-14] MEDS: PRENATAL VITAMINS W/ FOLIC ACID TABLET (FP) PO SCH (09:25)
[2017-03-14] MEDS: ASPIRIN COATED 81 MG TABLET.EC PO SCH (09:26)
[2017-03-14 10:33] VITALS: BP 146/97; PULSE 92; TEMP 97.7
--- NOTE | 2017-03-14 11:26 | DS ---
[facility] Detox Discharge Summary Admission Date: 03/10/17 Discharge Date: 03/14/17 - History Present History: Alcohol Dependence Pertinent Past History: HTN, HLD, Ca of the rectum, MDD - Physical Exam Results Vital Signs: Vital Signs Temperature 97.7 F 03/14/17 10:00 Pulse Rate 92 H 03/14/17 10:00 Respiratory Rate 18 03/14/17 10:00 Blood Pressure 146/97 03/14/17 10:00 O2 Sat by Pulse Oximetry (%) Pertinent Admission Physical Exam Findings: withdrawal sx Laboratory Last Values WBC 4.1 K/mm3 (4.0-10.0) 03/10/17 13:20 RBC 4.96 M/mm3 (4.00-5.60) 03/10/17 13:20 Hgb 14.5 GM/dL (11.7-16.9) 03/10/17 13:20 Hct 43.9 % (35.4-49) 03/10/17 13:20 MCV 88.5 fl (80-96) 03/10/17 13:20 MCH 29.2 pg (25.7-33.7) 03/10/17 13:20 MCHC 33.0 g/dl (32.0-35.9) 03/10/17 13:20 RDW 16.9 % (11.9-15.9) H D 03/10/17 13:20 Plt Count 223 K/MM3 (134-434) 03/10/17 13:20 MPV 9.2 fl (7.5-11.1) 03/10/17 13:20 Sodium 132 mmol/L (136-145) L 03/10/17 13:20 Potassium 4.5 mmol/L (3.5-5.1) 03/10/17 13:20 Chloride 95 mmol/L (98-107) L 03/10/17 13:20 Carbon Dioxide 24 mmol/L (21-32) 03/10/17 13:20 Anion Gap 13 (8-16) 03/10/17 13:20 BUN 5 mg/dL (7-18) L D 03/10/17 13:20 Creatinine 1.0 mg/dL (0.7-1.3) 03/10/17 13:20 Creat Clearance w eGFR > 60 (>60) 03/10/17 13:20 Random Glucose 111 mg/dL (74-106) H 03/10/17 13:20 Calcium 8.8 mg/dL (8.5-10.1) 03/10/17 13:20 Total Bilirubin 0.9 mg/dL (0.2-1.0) 03/10/17 13:20 AST 88 U/L (15-37) H D 03/10/17 13:20 ALT 55 U/L (12-78) D 03/10/17 13:20 Alkaline Phosphatase 76 U/L (45-117) 03/10/17 13:20 Total Protein 8.4 g/dl (6.4-8.2) H 03/10/17 13:20 Albumin 4.3 g/dl (3.4-5.0) 03/10/17 13:20 Urine Color Straw 03/10/17 15:00 Urine Appearance Clear 03/10/17 15:00 Urine pH 5.0 (5.0-8.0) 03/10/17 15:00 Ur Specific [place] <= 1.005 (1.005-1.025) 03/10/17 15:00 Urine Protein Negative (NEGATIVE) 03/10/17 15:00 Urine Glucose (UA) Negative (NEGATIVE) 03/10/17 15:00 Urine Ketones Negative (NEGATIVE) 03/10/17 15:00 Urine Blood 1+ (NEGATIVE) H 03/10/17 15:00 Urine Nitrite Negative (NEGATIVE) 03/10/17 15:00 Urine Bilirubin Negative (NEGATIVE) 03/10/17 15:00 Urine Urobilinogen Normal mg/dL (0.2-1.0) 03/10/17 15:00 Ur Leukocyte Esterase Negative (NEGATIVE) 03/10/17 15:00 Urine RBC <1 /hpf (0-3) 03/10/17 15:00 Urine WBC None seen /hpf (3-5) 03/10/17 15:00 Urine Mucus Rare 03/10/17 15:00 RPR Titer Nonreactive (NONREACTIVE) 03/10/17 13:20 HIV 1&2 Antibody Screen Negative 03/10/17 12:00 HIV P24 Antigen Negative 03/10/17 12:00 labs noted - Treatment Hospital Course: Detox Protocol Followed, Detoxed Safely, Responded well, Discharged Condition Good - Medication Discharge Medications: Ambulatory Orders Sertraline HCl [Zoloft -] 50 mg PO DAILY #30 tablet 12/19/16 Amlodipine Besylate 5 mg PO DAILY #30 mg 12/20/16 Aspirin [Aspirin EC] 81 mg PO DAILY #30 mg 12/20/16 Sertraline HCl [Zoloft -] 50 mg PO DAILY #30 tablet 03/11/17 - Diagnosis (1) Drug-induced mood disorder Current Visit: Yes Status: Acute (2) Alcohol dependence with uncomplicated withdrawal Current Visit: Yes Status: Chronic (3) HTN (hypertension) Current Visit: Yes Status: Chronic Qualifiers: Hypertension type: essential hypertension Qualified Code(s): I10 - Essential (primary) hypertension (4) Insomnia Current Visit: Yes Status: Chronic Qualifiers: Insomnia type: unspecified Qualified Code(s): G47.00 - Insomnia, unspecified (5) Hyperlipemia Current Visit: Yes Status: Chronic Qualifiers: Hyperlipidemia type: unspecified Qualified Code(s): E78.5 - Hyperlipidemia, unspecified (6) Mental retardation, mild (I.Q. 50-70) Current Visit: Yes Status: Suspected - AMA Did Patient Leave Against Medical Advice: No
== END 2017-03-14 09:35 | disposition home or self-care (01) | DRG 775 ==
LOC: YASAS 08:20 → Y6N 12:46
PROVIDERS: ADMIT Internal Medicine Addiction Medicine; ATTEND Internal Medicine Addiction Medicine
PROC: HZ2ZZZZ Detoxification Services for Substance Abuse Treatment (ICD-10-PCS; principal; 2017-03-10)
DX: F10.230 Alcohol dependence with withdrawal, uncomplicated (principal); F19.24 Other psychoactive substance dependence with psychoactive substance-induced mood disorder; F33.9 Major depressive disorder, recurrent, unspecified; I10 Essential (primary) hypertension; G47.00 Insomnia, unspecified; E78.5 Hyperlipidemia, unspecified; K21.9 Gastro-esophageal reflux disease without esophagitis; F70 Mild intellectual disabilities; R41.0 Disorientation, unspecified; Z85.048 Personal history of other malignant neoplasm of rectum, rectosigmoid junction, and anus; Z86.2 Personal history of diseases of the blood and blood-forming organs and certain disorders involving the immune mechanism; Z86.19 Personal history of other infectious and parasitic diseases
CPT/HCPCS: 36415; 80053; 81003; 81015; 85027; 86593; 87389; 93005; 93010